=== PATIENT | female | born 1995 | race Caucasian/White ===

== ENCOUNTER 2020-10-06 10:29 | Emergency (ER) | payer BC, OTHER ==
[~2020-10-06] VITALS: Ht 165.1 cm; Wt 82.2 kg
[~2020-10-06 10:29] MED LIST: FLUO10CA13 PO
--- NOTE | 2020-10-06 11:23 | PHYS DOC ---
Past History Past Medical History: Anxiety, Hypothyroid Additional Past Medical Histor: epilepsy (BRYAN YOST APRN) Past Surgical History: Tonsillectomy Additional Past Surgical Histo: ovarian cyst removal (BRYAN YOST APRN) Smoking: Non-smoker Alcohol Use: None Drug Use: None (BRYAN YOST APRN) General Adult EDM: Chief Complaint: VAGINAL BLEEDING HPI: HPI: Patient is a 25-year-old female presents with vaginal bleeding with .Patient states that she is also been vomiting for the last 3 days and unable to keep anything down. "I went to the bathroom this morning and when I wiped I noticed bright red blood". "I have had bleeding when I wiped a couple other times today as well". Patient's LMP unknown. "I just had a baby 6 months ago so I never had a regular period yet". Patient was seen at her OB 2 weeks ago that confirmed . Patient also reports some lower abdominal cramping that started last night. Estimated due date is 05/19. G3, P2. 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 Denies recent illness, fever. Patient also has history of hypothyroid and anxiety. (BRYAN YOST APRN) Review of Systems: Review of Systems: Constitutional: Denies fever or chills Eyes: Denies change in visual acuity HENT: Denies nasal congestion or sore throat Respiratory: Denies cough or shortness of breath Cardiovascular: Denies chest pain or edema GI: Reports lower abdominal cramping, nausea, vomiting, diarrhea. /vaginal: Reports vaginal bleeding. Denies dysuria, abnormal vaginal discharge or odor. Musculoskeletal: Denies back pain or joint pain Integument: Denies rash Neurologic: Denies headache, focal weakness or sensory changes Endocrine: Denies polyuria or polydipsia Lymphatic: Denies swollen glands Psychiatric: Denies depression or anxiety (BRYAN YOST APRN) Allergies: Allergies: Allergies Coded Allergies Type Severity Reaction Last Updated Verified No Known Allergies Allergy Unknown 07/12/13 Yes (BRYAN YOST APRN) Physical Exam: PE: Constitutional: Well developed, well nourished, no acute distress, non-toxic appearance. [] HENT: Normocephalic, atraumatic, bilateral external ears normal, oropharynx moist, no oral exudates, nose normal. [] Eyes: PERRLA, EOMI, conjunctiva normal, no discharge. [] Neck: Normal range of motion, no tenderness, supple, no stridor. [] Cardiovascular:Heart rate regular rhythm, no murmur [] Lungs & Thorax: Bilateral breath sounds clear to auscultation [] Abdomen: Bowel sounds normal, soft, no tenderness, no masses, no pulsatile masses. [] Skin: Warm, dry, no erythema, no rash. [] Back: No tenderness, no CVA tenderness. [] Extremities: No tenderness, no cyanosis, no clubbing, ROM intact, no edema. [] Neurologic: Alert and oriented X 3, normal motor function, normal sensory function, no focal deficits noted. [] Psychologic: Affect normal, judgement normal, mood normal. [] (BRYAN YOST APRN) Current Patient Data: Vital Signs: Vital Signs Date Time Temp Pulse Resp B/P (MAP) Pulse Ox O2 Delivery O2 Flow Rate FiO2 10/06/20 10:48 97.1 83 18 112/72 96 Room Air (BRYAN YOST APRN) EKG: EKG: [] (BRYAN YOST APRN) Radiology/Procedures: Radiology/Procedures: []EXAM: Obstetrics sonogram. HISTORY: Vaginal bleeding. TECHNIQUE: Transabdominal sonographic imaging of the pelvis was performed. COMPARISON: None. FINDINGS: The uterus measures 14.1 x 8.5 x 6.0 cm. There is a single intrauterine gestational sac with pole and yolk sac. The crown-rump length is 1.7 cm, corresponding with a gestational age of 8 weeks and 1 day and due date of 05/17/2021. There is a normal heart rate of 171 bpm. The gestational sac is normal in configuration and location. No subchorionic hematoma is seen. The anatomic fluid volume is normal. The ovaries are normal in size and demonstrate normal blood flow. There is no pelvic free fluid. IMPRESSION: Single intrauterine fetus with normal heart rate and gestational age based on ultrasound measurements of 8 weeks and 1 day. Electronically signed by: Juli Johnston MD (10/06/2020 12:07 PM) [id number] (BRYAN YOST APRN) Heart Score: C/O Chest Pain: No Risk Factors: Risk Factors: DM, Current or recent (<one month) smoker, HTN, HLP, family history of CAD, obesity. Risk Scores: Score 0 - 3: 2.5% MACE over next 6 weeks - Discharge Home Score 4 - 6: 20.3% MACE over next 6 weeks - Admit for Clinical Observation Score 7 - 10: 72.7% MACE over next 6 weeks - Early Invasive Strategies (BRYAN YOST APRN) Course & Med Decision Making: Course & Med Decision Making Pertinent Labs and Imaging studies reviewed. (See chart for details) [] 25-year-old female presents with vaginal bleeding with . Patient also reports that she has been vomiting for the last 3 days been unable to keep water or food down. Patient noticed bright red blood this morning when she wiped and has had a few more incidences today. Last menstrual period is unknown. Patient states that she was seen by her OB and was confirmed 2 weeks ago. Patient given 4 mg Zofran for nausea. Normal saline bolus to help with hydration. Ultrasound shows single intrauterine fetus with normal heart rate and gestational age based on ultrasound. All labs unremarkable. Instructed patient to call her OB to make a follow-up appointment. I gave patient a copy of ultrasound report. Patient also given prescription for Zofran to help with nausea at home. Patient given strict return precautions. Patient is hemodynamically stable upon disposition. (BRYAN YOST APRN) Dragon Disclaimer: Dragon Disclaimer: This electronic medical record was generated, in whole or in part, using a voice recognition dictation system. (BRYAN YOST APRN) Departure Departure: Impression: Primary Impression: Vaginal bleeding during Disposition: HOME / SELF CARE / HOMELESS Condition: STABLE Referrals: PCP,NO (PCP) Patient Instructions: Vaginal Bleeding During , First Trimester Additional Instructions: You were seen in the emergency room for vaginal bleeding and nausea. You were given Zofran in the ER to help with symptoms along with fluids. heart rate was 171 ultrasound showed a single intrauterine fetus. I am sending you home with a prescription for Zofran. Please call your OB make a follow-up appointment. Please return emergency room if you have worsening symptoms or concerns. EMERGENCY DEPARTMENT GENERAL DISCHARGE INSTRUCTIONS Thank you for coming to [facility] (ED) today and trusting us with you care. We trust that you had a positivie experience in our Emergency Department. If you wish to speak to the department management, you may call the director at [phone]. YOUR FOLLOW UP INSTRUCTIONS ARE FOLLOWS: 1. Do you have a private Doctor? If you do not have a private doctor, please ask for a resource list of physicians or clinics that may be able to assist you with follow up care. 2. The Emergency Physician has interpreted your x-rays. The X-Ray specialist will also review them. If there is a change in the findings, you will be notified in 48 hours when at all possible. 3. A lab test or culture has been done, your results will be reviewed and you will be notified if you need a change in treatment. ADDITIONAL INSTRUCTIONS AND INFORMATION: 1. Your care today has been supervised by a physician who is specially trained in emergency care. Many problems require more than one evaluation for a complete diagnosis and treatment. We recommend that you schedule your follow up appointment as recommended to ensure complete treatment of you illness or injury. If you are unable to obtain follow up care and continue to have a problem, or if your condition worsens, we recommend that you return to the ED. 2. We are not able to safely determine your condition over the phone nor are we able to give sound medical advice over the phone. For these safety reasons, if you call for medical advice we will ask you to come to the ED for further evaluation. 3. If you have any questions regarding these discharge instructions please call the ED at [phone]. SAFETY INFORMATION: In the interest of safety, wellness, and injury prevention; we encourage you to wear your sealbelt, if you smoke; quite smoking, and we encourage family to use a protective helmet for bicycling and other sporting events that present an increased risk for head injury. IF YOUR SYMPTOMS WORSEN OR NEW SYMPTOMS DEVELOP, OR YOU HAVE CONCERNS ABOUT YOUR CONDITION; OR IF YOUR CONDITION WORSENS WHILE YOU ARE WAITING FOR YOUR FOLLOW UP APPOINTMENT; EITHER CONTACT YOUR PRIMARY CARE DOCTOR, THE PHYSICIAN WHOSE NAME AND NUMBER YOU WERE GIVEN, OR RETURN TO THE ED IMMEDIATELY. Scripts Ondansetron Hcl (ZOFRAN) 4 Mg Tablet 4 MG PO TID PRN PRN for NAUSEA for 10 Days, #30 TAB Prov: BRYAN YOST APRN 10/06/20 Attending Signature Attending Signature I have reviewed the PA/RELIEF PILOT's note and plan of care. I was available for consultation as needed during the patient's visit in the emergency department. I agree with the clinical impression, plan, and disposition. (DIMA PRICE DO) BRYAN YOST APRN Oct 06, 2020 11:23 DIMA PRICE DO Oct 06, 2020 23:27
[2020-10-06] MEDS ORDERED: IV NORMAL SALINE 1,000ML 1,000 ML IV ONE (11:30)
[2020-10-06] MEDS ORDERED: ONDANSETRON PF 4 MG/2 ML VIAL. IVP ONE (11:30)
[2020-10-06 11:39] LABS: BASO # 0.1 x10^3/uL (0.0-0.2); BASO % 1 % (0-3); EOS % 0 % (0-3); HEMATOCRIT 35.8 % (36.0-47.0); HEMOGLOBIN 12.1 g/dL (12.0-15.5); LYMPH # 1.6 x10^3/uL (1.0-4.8); LYMPH % 19 % (24-48); MEAN CORPUSCULAR HEMOGLOBIN 30 pg (25-35); MEAN CORPUSCULAR HGB CONC 34 g/dL (31-37); MEAN CORPUSCULAR VOLUME 89 fL (79-100); MONO # 0.5 x10^3/uL (0.0-1.1); MONO % 7 % (0-9); NEUT % 73 % (31-73); PLATELET COUNT 293 x10^3/uL (140-400); RED BLOOD COUNT 4.02 x10^6/uL (3.50-5.40); RED CELL DISTRIBUTION WIDTH 14.4 % (11.5-14.5); WHITE BLOOD COUNT 8.2 x10^3/uL (4.0-11.0)
[2020-10-06 11:51] LABS: CALCIUM 8.7 mg/dL (8.5-10.1); CREATININE 0.5 mg/dL (0.6-1.0); GFR 151.6; POTASSIUM 3.7 mmol/L (3.5-5.1)
[2020-10-06 11:56] LABS: ALBUMIN 3.7 g/dL (3.4-5.0); ALBUMIN/GLOBULIN RATIO 1.1 (1.0-1.7); TOTAL BILIRUBIN 0.3 mg/dL (0.2-1.0); TOTAL PROTEIN 7.2 g/dL (6.4-8.2)
--- NOTE | 2020-10-06 12:09 | RAD ---
EXAM: Obstetrics sonogram. HISTORY: Vaginal bleeding. TECHNIQUE: Transabdominal sonographic imaging of the pelvis was performed. COMPARISON: None. FINDINGS: The uterus measures 14.1 x 8.5 x 6.0 cm. There is a single intrauterine gestational sac wit h pole and yolk sac. The crown-rump length is 1.7 cm, corresponding with a gestational ag e of 8 weeks and 1 day and due date of 05/17/2021. There is a normal heart rate of 171 bpm. The g estational sac is normal in configuration and location. No subchorionic hematoma is seen. The anatomi c fluid volume is normal. The ovaries are normal in size and demonstrate normal blood flow. There is no pelvic free fluid. IMPRESSION: Single intrauterine fetus with normal heart rate and gestational age based on ultrasound measurements of 8 weeks and 1 day. Electronically signed by: Juli Johnston MD (10/06/2020 12:07 PM) [id number]
[2020-10-06 13:46] LABS: BILIRUBIN,URINE NEG (NEG); CLARITY,URINE HAZY; COLOR,URINE STRAW; GLUCOSE,URINE NEG (NEG); NITRITE,URINE NEG (NEG); UROBILINOGEN,URINE 0.2 mg/dL (0.2 mg/dL)
[2020-10-06 13:54] LABS: BACTERIA,URINE FEW /HPF (0-FEW); SQUAMOUS EPITHELIAL CELL,UR MANY /LPF
[2020-10-06 14:00] VITALS: BP 112/61
[2020-10-06] MEDS ORDERED: ONDA4TAB7 PO (14:07)
== END 2020-10-06 14:29 | disposition home or self-care (01) ==
LOC: ER 10:29
DX: O46.91 Antepartum hemorrhage, unspecified, first trimester (principal); O21.9 Vomiting of pregnancy, unspecified; R10.30 Lower abdominal pain, unspecified; F41.9 Anxiety disorder, unspecified; E03.9 Hypothyroidism, unspecified; G40.909 Epilepsy, unspecified, not intractable, without status epilepticus; Z3A.01 Less than 8 weeks gestation of pregnancy
CPT/HCPCS: 36415; 76801; 80053; 81001; 84702; 85025; 86850; 86900; 86901; 87086; 96361; 96374; 99284; J2405; J7030

== ENCOUNTER → 2020-11-24 | Emergency (ER) | payer BC ==
[~2020-11-24] VITALS: Ht 165.1 cm; Wt 77.3 kg
[~2020-11-24] MED LIST changes: +CALCIUM CARBONATE 500 MG TAB.CHEW ONE; +CALCIUM CARBONATE 500 MG TAB.CHEW PO PRN; +IV NORMAL SALINE 500ML 500 ML IV ONE; +IV RINGERS SOLUTION,LACTATED 1,000 ML IV ONE; +ONDA4TAB7 PO
[2020-11-24 07:15] VITALS: BP 101/61
--- NOTE | 2020-11-24 07:16 | PHYS DOC ---
Past History Past Medical History: Anxiety, Hypothyroid Additional Past Medical Histor: epilepsy Past Surgical History: Tonsillectomy Additional Past Surgical Histo: ovarian cyst removal Smoking: Non-smoker Alcohol Use: None Drug Use: None Adult General HPI HPI Patient is a female at 15 weeks gestation presenting for syncopal episode. These are chronic for her. States she has had syncopal episodes most of her life with no known etiology. States she has had formal evaluation numerous times in outpatient setting with unremarkable diagnostic work-up that included echocardiogram. States she is at 15 weeks gestation, she is well covered in outpatient setting by [facility] and sees there high [facility] war[facility]/GYN group given her history of seizures. She has not had a seizure in the past 2 years, is not on any medication for this. States she suffers from hyperemesis gravidarum and has had diarrhea which is been constant throughout this as she has history of choledocholithiasis with . She states she feels like she has been dehydrated the last few days. This morning, patient got in the shower and felt hot. She reports next thing she knew she felt lightheaded and dizzy and ended up on the ground. It is unclear if she hit her head, her was there and immediately found patient, no obvious trauma but given syncopal episode, patient called her [facility] group who subsequently advised her to seek care at local ER for evaluation. She otherwise states she has been at baseline health besides ongoing nausea vomit and diarrhea. She is fully vacci nated against COVID-19. Takes no other medications. Denies any recent sick contacts or travel. No abdominal pain, vaginal bleeding or loss of vaginal fluid Review of Systems Review of Systems Fourteen body systems of review of systems have been reviewed. See HPI for pertinent positives and negative responses, other meehan all other systems are negative, non-pertinent or non-contributory Allergies Allergies Allergies Coded Allergies Type Severity Reaction Last Updated Verified No Known Allergies Allergy Unknown 07/12/13 Yes Physical Exam Physical Exam Constitutional: Well developed, well nourished, no acute distress, non-toxic appearance. HENT: Normocephalic, atraumatic, bilateral external ears normal, oropharynx moist, no oral exudates, nose normal. Eyes: PERRLA, EOMI, conjunctiva normal, no discharge. Neck: Normal range of motion, no midline tenderness, supple, no stridor. No meningeal signs Cardiovascular: Heart rate regular, sinus rhythm, no murmurs rubs or gallops Lungs & Thorax: Bilateral breath sounds clear to auscultation Abdomen: Bowel sounds normal, soft, no tenderness, no masses, no pulsatile masses. Nonsurgical abdomen, no peritoneal signs. Positive movement with palpation. Bedside ultrasound used as documented below with x1 single intrauterine identified with movement, heart tones 152 bpm Skin: Warm, dry, no erythema, no rash. Back: No tenderness, no CVA tenderness. Extremities: No tenderness, no cyanosis, no clubbing, ROM intact, no edema. Neurologic: Alert and oriented X 3, cranial nerves II through XII intact, normal motor & sensory function, no focal deficits noted. Psychologic: Affect normal, judgement normal, mood normal. Current Patient Data Vital Signs Vital Signs Date Time Temp Pulse Resp B/P (MAP) Pulse Ox O2 Delivery O2 Flow Rate FiO2 11/24/20 07:15 97.6 104 16 101/61 (74) 98 Room Air Vital Signs Date Time Temp Pulse Resp B/P (MAP) Pulse Ox O2 Delivery O2 Flow Rate FiO2 11/24/20 07:15 97.6 104 16 101/61 (74) 98 Room Air Lab Results Laboratory Tests Test 11/24/20 07:38 11/24/20 07:40 White Blood Count 6.7 x10^3/uL Red Blood Count 3.91 x10^6/uL Hemoglobin 12.2 g/dL Hematocrit 36.6 % Mean Corpuscular Volume 94 fL Mean Corpuscular Hemoglobin 31 pg Mean Corpuscular Hemoglobin Concent 33 g/dL Red Cell Distribution Width 13.9 % Platelet Count 252 x10^3/uL Neutrophils (%) (Auto) 83 % Lymphocytes (%) (Auto) 11 % Monocytes (%) (Auto) 6 % Eosinophils (%) (Auto) 0 % Basophils (%) (Auto) 0 % Neutrophils # (Auto) 5.6 x10^3uL Lymphocytes # (Auto) 0.7 x10^3/uL Monocytes # (Auto) 0.4 x10^3/uL Eosinophils # (Auto) 0.0 x10^3/uL Basophils # (Auto) 0.0 x10^3/uL Sodium Level 139 mmol/L Potassium Level 3.6 mmol/L Chloride Level 103 mmol/L Carbon Dioxide Level 23 mmol/L Anion Gap 13 Blood Urea Nitrogen 8 mg/dL Creatinine 0.4 mg/dL Estimated GFR (Cockcroft-Gault) 196.1 BUN/Creatinine Ratio 20 Glucose Level 93 mg/dL Calcium Level 8.7 mg/dL Total Bilirubin 0.4 mg/dL Aspartate Amino Transf (AST/SGOT) 12 U/L Alanine Aminotransferase (ALT/SGPT) 25 U/L Alkaline Phosphatase 62 U/L Troponin I Quantitative < 0.017 ng/mL Total Protein 6.5 g/dL Albumin 3.3 g/dL Albumin/Globulin Ratio 1.0 SARS-CoV-2 Antigen (Rapid) Negative Current Medications Medications (Trade) Dose Ordered Sig/Jessica Route PRN Reason Start Time Stop Time Status Last Admin Dose Admin Lactated Ringer's 1,000 ml @ 250 mls/hr 1X ONCE IV 11/24/20 07:30 11/24/20 11:29 EKG EKG EKG ordered and interpreted by myself at 0746 hrs. is sinus rhythm at 87 bpm, unremarkable intervals, no axis deviation, T wave inversions noted in inferior leads II, III, aVF and anterolateral leads V3-6, no STEMI Prior EKG ordered and used for comparison obtained September 07, 2015, prior T wave inversions in inferior leads noted. Anterolateral leads T wave inversions new Repeat EKG ordered and interpreted by myself 0900 hrs. sinus rhythm at 82 bpm, unremarkable intervals, no axis deviation, no change from initial EKG obtained this visit, no STEMI Radiology/Procedures Radiology/Procedures [] Heart Score C/O Chest Pain: No HEART Score for Chest Pain: HEART Score for Chest Pain Response (Comments) Value History Slighlty/Non-Suspicious 0 ECG Nonspecific Repolarizatio 1 Age < 45 0 Risk Factors No Risk Factors 0 Troponin < Normal Limit 0 Total 1 Risk Factors: Risk Factors: DM, Current or recent (<one month) smoker, HTN, HLP, family history of CAD, obesity. Risk Scores: Risk Factors: DM, Current or recent (<one month) smoker, HTN, HLP, family history of CAD, obesity. Course & Med Decision Making Course & Med Decision Making Airway patent, breathing unlabored, IV access and vitals obtained concerning for slight hypotension and tachycardia only HPI, physical exam and comprehensive ER work-up nonconcerning for any emergent or surgical issues Patient symptoms improved after 1.5 L IV fluid rehydration I disclosed potential need for head and neck imaging, low risk fall in an individual with chronic syncope. She has had extensive work-up in the past and has had numerous CT scans of head and MRI given history of seizure. Joint decision to defer head and neck imaging Patient has good access to care with primary care physician and [facility]. It is a weekday and so, I advised patient to call her [facility] to review need for close outpatient follow-up regarding today's visit. Strict return precautions were discussed with good understanding verbalized Prior to ER departure, patient voiced epigastric burning. Repeat EKG obtained without significant changes. Tums given which she usually takes for similar symptoms. I discussed likely GI irritation from recent exacerbation and emesis with continued supportive care advised I did disclose this might be an acute presentation of more concerning pathology especially given new onset anterolateral lead T wave inversions with patient such as ACS and/or pulmonary embolism. I discussed work-up that would involve CT imaging which exposes her in child to radiation etc. Patient aware of low likelihood diagnoses and deferred further diagnostic work-up for this. She has history of anxiety and I feel this is contributing to a lot of her symptoms today. She has good access to care as discussed above. Reiterated return precautions and need for close outpatient follow-up Kalyani Disclaimer [place] Disclaimer This electronic medical record was generated, in whole or in part, using a voice recognition dictation system. Departure Departure: Impression: Primary Impression: Syncope Additional Impression: and not yet delivered in second trimester Disposition: 01 HOME / SELF CARE / HOMELESS Condition: IMPROVED Referrals: PCP,SUSANA (PCP) Additional Instructions: You were seen for syncope. You should make sure to drink plenty of fluids. It is unclear what caused your symptoms but your initial evaluation did not show any concerning symptoms or features. As disclosed your entire ER work-up was grossly unremarkable and your overall symptoms improved with IV fluid rehydration. Return to the ED immediately if you develop worsening symptoms, chest pain, shortness of breath, numbness, tingling, weakness, vision change, or any other new or concerning symptoms. You should follow up with your primary care doctor and [facility] in a few days to have your labs repeated and to be evaluated again. Problem Qualifiers SHAWN BARBOZA DO Nov 24, 2020 07:16
[2020-11-24 07:58] LABS: BASO % 0 % (0-3); EOS % 0 % (0-3); HEMATOCRIT 36.6 % (36.0-47.0); HEMOGLOBIN 12.2 g/dL (12.0-15.5); LYMPH # 0.7 x10^3/uL (1.0-4.8); LYMPH % 11 % (24-48); MEAN CORPUSCULAR HEMOGLOBIN 31 pg (25-35); MEAN CORPUSCULAR HGB CONC 33 g/dL (31-37); MEAN CORPUSCULAR VOLUME 94 fL (79-100); MONO # 0.4 x10^3/uL (0.0-1.1); MONO % 6 % (0-9); NEUT # 5.6 x10^3uL (1.8-7.7); NEUT % 83 % (31-73); PLATELET COUNT 252 x10^3/uL (140-400); RED BLOOD COUNT 3.91 x10^6/uL (3.50-5.40); RED CELL DISTRIBUTION WIDTH 13.9 % (11.5-14.5); WHITE BLOOD COUNT 6.7 x10^3/uL (4.0-11.0)
--- NOTE | 2020-11-24 08:02 | EKG ---
[address] [address] Test Date: 2020-11-24 Test Time: 07:39:57 Pat Name: MORIS BRAVO Department: Room: Gender: F [employer]: : 1995 Requested By: SHAWN BARBOZA Order Number: [id number] Reading MD: Lavon Churchill MD Measurements Intervals [place] Rate: 87 P: 37 MD: 150 QRS: 58 QRSD: 82 T: -23 QT: 352 QTc: 429 Interpretive Statements SINUS RHYTHM T ABNORMALITY IN ANTERIOR LEADS INFERIOR LEADS ABNORMAL ECG Electronically Signed On 11-29-2020 11:44:40 CDT by Lavon Churchill MD
[2020-11-24 08:05] LABS: CALCIUM 8.7 mg/dL (8.5-10.1); CREATININE 0.4 mg/dL (0.6-1.0); GFR 196.1; POTASSIUM 3.6 mmol/L (3.5-5.1)
[2020-11-24 08:11] LABS: ALBUMIN 3.3 g/dL (3.4-5.0); TOTAL BILIRUBIN 0.4 mg/dL (0.2-1.0); TOTAL PROTEIN 6.5 g/dL (6.4-8.2)
--- NOTE | 2020-11-24 09:14 | EKG ---
[address] [address] Test Date: 2020-11-24 Test Time: 08:53:07 Pat Name: MORIS BRAVO Department: Room: Gender: F Shipping Order Clerk: TYLER : 1995 Requested By: SHAWN BARBOZA Order Number: [id number] Reading MD: Lavon Churchill MD Measurements Intervals [place] Rate: 82 P: 52 [place]: 144 QRS: 79 QRSD: 82 T: -46 QT: 364 QTc: 428 Interpretive Statements SINUS RHYTHM T ABNORMALITY IN ANTERIOR LEADS INFEROLATERAL LEADS ABNORMAL ECG Electronically Signed On 11-29-2020 11:44:04 CDT by Lavon Churchill MD
== END | disposition home or self-care (01) ==
LOC: ER 06:57
DX: O26.892 Other specified pregnancy related conditions, second trimester (principal); R55 Syncope and collapse; O21.9 Vomiting of pregnancy, unspecified; Z20.822 Contact with and (suspected) exposure to COVID-19; Z3A.15 15 weeks gestation of pregnancy
CPT/HCPCS: 36415; 80053; 84484; 85025; 87426; 93005; 96360; 99284; J7040; J7120; U0003

== ENCOUNTER 2021-05-31 10:57 | Emergency (ER) | payer BC, OTHER ==
[~2021-05-31] VITALS: Ht 165.1 cm; Wt 83.3 kg
[~2021-05-31 10:57] MED LIST changes: -CALCIUM CARBONATE 500 MG TAB.CHEW ONE; -CALCIUM CARBONATE 500 MG TAB.CHEW PO PRN; -IV NORMAL SALINE 500ML 500 ML IV ONE; -IV RINGERS SOLUTION,LACTATED 1,000 ML IV ONE
--- NOTE | 2021-05-31 11:26 | PHYS DOC ---
Past History Past Medical History: Anxiety, Hypothyroid Additional Past Medical Histor: epilepsy Past Surgical History: No Surgical History Additional Past Surgical Histo: ovarian cyst removal Smoking: Non-smoker Alcohol Use: None Drug Use: None General Adult EDM: Chief Complaint: HEADACHE HPI: HPI: Patient is a 26-year-old female who presents to the emergency department today for headache started today. She took Tylenol at 8 AM with little relief in her symptoms. She rates her pain 7 out of 10. Reports that the headache is generalized. No aggravating factors, not worse with Valsalva maneuver. Patient denies nausea and vomiting but does report phonophobia and photophobia. She does have a history of headaches but states this is the worst headache she is ever experienced. She denies any fevers. Patient is approximately 4 weeks . She had no complications with her . Patient denies any heavy vaginal bleeding or abdominal pain. Patient does have a history of seizures but has not had a seizure in the last 10 months. Review of Systems: Review of Systems: Constitutional: See HPI Eyes: See HPI GI: See HPI Neurologic: See HPI Allergies: Allergies: Allergies Coded Allergies Type Severity Reaction Last Updated Verified No Known Allergies Allergy Unknown 07/12/13 Yes Physical Exam: PE: Constitutional: Well developed, well nourished, no acute distress, non-toxic appearance. [] HENT: Normocephalic, atraumatic, bilateral external ears normal, oropharynx moist, no oral exudates, nose normal. [] Eyes: PERRL, EOMI, horizontal nystagmus, conjunctiva normal, no discharge. [] Neck: Normal range of motion, no tenderness, supple, no stridor. [] Cardiovascular:Heart rate regular rhythm, no murmur [] Lungs & Thorax: Bilateral breath sounds clear to auscultation [] Abdomen: Bowel sounds normal, soft, no tenderness, no masses, no pulsatile masses. [] Skin: Warm, dry, no erythema, no rash. [] Back: No tenderness, normal rom Extremities: No tenderness, no cyanosis, no clubbing, ROM intact, no edema. [] Neurologic: Alert and oriented X 3, normal motor function, normal sensory function, no focal deficits noted. [] Psychologic: Affect normal, judgement normal, mood normal. [] Current Patient Data: Vital Signs: Vital Signs Date Time Temp Pulse Resp B/P (MAP) Pulse Ox O2 Delivery O2 Flow Rate FiO2 05/31/21 11:05 98.2 98 16 107/61 (76) 96 Room Air EKG: EKG: [] Radiology/Procedures: Radiology/Procedures: []PROCEDURE: CT HEAD WO CONTRAST EXAM: CT head without contrast INDICATION: Severe headache COMPARISON: CT head 07/12/2013 TECHNIQUE: Axial CT imaging through the head without intravenous contrast. Sagittal reformats were obtained. One or more of the following individualized dose reduction techniques were utilized for this examination: 1. Automated exposure control 2. Adjustment of the mA and/or kV according to patient size 3. Use of iterative reconstruction technique. FINDINGS: The ventricles and sulci are normal. Calle-white matter differentiation is maintained. There is no intracranial hemorrhage, acute infarct, or mass lesion. Basal cisterns are clear. The skull and scalp are intact. Paranasal sinuses and mastoid air cells are clear. Globes and orbits are intact. IMPRESSION: No acute intracranial abnormality. 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 Risk Scores: Score 0 - 3: 2.5% MACE over next 6 weeks - Discharge Home Score 4 - 6: 20.3% MACE over next 6 weeks - Admit for Clinical Observation Score 7 - 10: 72.7% MACE over next 6 weeks - Early Invasive Strategies Course & Med Decision Making: Course & Med Decision Making Pertinent Labs and Imaging studies reviewed. (See chart for details) Patient presents for headache. She does have a hx of headache but reports that this is the worst headache she has ever experienced. Therefore, CT imaging of head performed. Patient is experiencing phono/photophobia. She is treated with Reglan and ibuprofen as she is and compazine, toradol and benadryl are contraindicated. She was also given a liter of NS. CT head showed no acute findings. Patient reports improvement in her symptoms following treatment in the ER. Patient vies to take Tylenol and ibuprofen at home and increase fluids. Her vital signs are stable. I discussed with patient all findings and diagnostic testing as well as the need to follow-up with PCP for further evaluation and treatment or return to the ER if any new or worsening symptoms. Strict return precautions were also discussed at length. Patient voiced understanding and agreement with the plan. Patient is hemodynamically stable at the time of disposition. Dragon Disclaimer: Dragon Disclaimer: This electronic medical record was generated, in whole or in part, using a voice recognition dictation system. Departure Departure: Impression: Primary Impression: Headache Qualified Codes: R51.9 - Headache, unspecified Disposition: HOME / SELF CARE / HOMELESS Condition: GOOD Referrals: NON,STAFF (PCP) Patient Instructions: Migraine Headache Additional Instructions: You were seen in the emergency department for a headache which is most likely a migraine. You were given a ibuprofen and nausea medication, fluids were also given to help with dehydration which is commonly a cause of headache. Try to hydrate at home with water and other fluids and eat normal diet. You can take Tylenol and ibuprofen at home for pain. Follow-up with your primary care provider tomorrow regarding your ER visit. Please return to the emergency department if you have any vomiting, fever, increased pain that is refractory to treatments at home, vision changes, changes in behavior or mental status, or any focal neurological symptoms including weakness or numbness in the limbs. It is important to follow-up with your doctor tomorrow regarding your ER visit for reexamination. STAR RENE APRN May 31, 2021 11:26
[2021-05-31] MEDS ORDERED: METOCLOPRAMIDE HCL 10 MG/2 ML VIAL. IVP ONE (11:30)
[2021-05-31] MEDS ORDERED: IV NORMAL SALINE 1,000ML 1,000 ML IV ONE (11:30)
[2021-05-31] MEDS ORDERED: IBUPROFEN 400 MG TABLET. PO ONE (11:30)
[2021-05-31] MEDS ORDERED: ONDANSETRON PF 4 MG/2 ML VIAL. IVP ONE (11:45)
--- NOTE | 2021-05-31 11:51 | RAD ---
EXAM: CT head without contrast INDICATION: Severe headache COMPARISON: CT head 07/12/2013 TECHNIQUE: Axial CT imaging through the head without intravenous contrast. Sagittal reformats were ob tained. One or more of the following individualized dose reduction techniques were utilized for this examinat ion: 1. Automated exposure control 2. Adjustment of the mA and/or kV according to patient size 3. Use of iterative reconstruction technique. FINDINGS: The ventricles and sulci are normal. Calle-white matter differentiation is maintained. There is no in tracranial hemorrhage, acute infarct, or mass lesion. Basal cisterns are clear. The skull and scalp are intact. Paranasal sinuses and mastoid air cells are clear. Globes and orbits are intact. IMPRESSION: No acute intracranial abnormality. Electronically signed by: Kylie Raman MD (05/31/2021 11:48 AM) [id number]
[2021-05-31 12:27] VITALS: BP 114/58
== END 2021-05-31 12:27 | disposition home or self-care (01) ==
LOC: ER 10:57
DX: O90.89 Other complications of the puerperium, not elsewhere classified (principal); R51.9 Headache, unspecified; H53.143 Visual discomfort, bilateral
CPT/HCPCS: 70450; 96361; 96374; 99284; J2405; J7030